=== PATIENT | male | born 1985 | race Two or more races ===

== ENCOUNTER 2016-06-07 10:06 | Emergency (ER) | payer SELFPAY ==
[~2016-06-07] VITALS: Ht 175.3 cm; Wt 109.8 kg
[2016-06-07] MEDS ORDERED: KETOROLAC TROMETHAMINE INJ 60 MG/2 ML VIAL IM ONE ×2 (10:57→11:00)
[2016-06-07] MEDS ORDERED: LIDOCAINE HCL/PF 1% 30 ML VIAL TP ONE (11:00)
--- NOTE | 2016-06-07 11:40 | NUR ---
AT FOR WOUND CARE PROCEDURE.
[2016-06-07] MEDS ORDERED: TDAP [DIPH/PERTUSSIS/TET] 0.5 ML VIAL IM ONE ×2 (12:13→12:30)
--- NOTE | 2016-06-07 12:20 | NUR ---
Patient discharged to home in stable condition. Written and verbal after care instructions given. Patient verbalizes understanding of instruction.
[2016-06-07 12:22] VITALS: BP 132/79
== END 2016-06-07 12:23 | disposition home or self-care (01) ==
LOC: ER 10:08
DX: S00.432A Contusion of left ear, initial encounter (principal); S80.01XA Contusion of right knee, initial encounter; V49.40XA Driver injured in collision with unspecified motor vehicles in traffic accident, initial encounter; Y93.89 Activity, other specified; Y92.89 Other specified places as the place of occurrence of the external cause; Y99.9 Unspecified external cause status
CPT/HCPCS: 73564-TC; 90715; A4606; A6402; J1885; J3490; Z7610

== ENCOUNTER 2016-06-09 12:25 | Emergency (ER) | payer SELFPAY ==
[~2016-06-09] VITALS: Ht 175.3 cm; Wt 104.3 kg
[2016-06-09] MEDS ORDERED: HYDROMORPHONE 1 MG/1 ML DISP.SYRIN ONE (13:13)
--- NOTE | 2016-06-09 13:16 | NUR ---
CALLED DR. HAWKINS, TRANSFERRED CALL TO
[2016-06-09] MEDS ORDERED: HYDROMORPHONE 1 MG/1 ML DISP.SYRIN IM ONE (13:30)
[2016-06-09 13:45] VITALS: BP 125/72
== END 2016-06-09 13:47 | disposition home or self-care (01) ==
LOC: ER 12:26
DX: S00.432A Contusion of left ear, initial encounter (principal); X58.XXXA Exposure to other specified factors, initial encounter; Y93.89 Activity, other specified; Y92.89 Other specified places as the place of occurrence of the external cause; Y99.8 Other external cause status
CPT/HCPCS: A4606; J1170; Z7610